=== PATIENT | male | born 1955 | race African-American/Black ===

== ENCOUNTER 2016-11-29 10:44 | Inpatient (IN) | payer MEDICARE ==
[~2016-11-29] VITALS: Ht 180.3 cm; Wt 86.6 kg
[2016-11-29] MEDS ORDERED: SODIUM CHLORIDE 0.9% 100 ML IV ONE (11:48)
[2016-11-29] MEDS ORDERED: CEFTRIAXONE 1 GM VIAL ONE (11:48)
[2016-11-29] MEDS ORDERED: SODIUM CHLORIDE 0.9% 1,000 ML ONE ×2 (11:49→12:23)
[2016-11-29] MEDS ORDERED: SALINE FLUSH 10 ML FLUSH PRN ×2 (12:30)
[2016-11-29] MEDS ORDERED: ACETAMINOPHEN 325 MG TAB PO PRN (12:30)
[2016-11-29] MEDS ORDERED: SODIUM CHLORIDE 0.9% 500 ML IV ONE (13:37)
[2016-11-29] MEDS: LACT RINGERS 1,000 ML IV SCH (15:26)
[2016-11-29 15:30] VITALS: BP_SYST 125; RESP 18; TEMP 100.3
[2016-11-29 15:31] VITALS: BP_SYST 130; Ht 180.3 cm; Wt 86.6 kg
[2016-11-29 16:17] VITALS: RESP 16
[2016-11-29 17:48] VITALS: TEMP 99.3
[2016-11-29] MEDS: SALINE FLUSH 10 ML FLUSH SCH (20:00)
[2016-11-29] MEDS ORDERED: SALINE FLUSH 10 ML FLUSH SCH (20:00)
[2016-11-29 20:43] VITALS: BP_SYST 126; RESP 16; TEMP 98.7
[2016-11-29 22:38] VITALS: BP_SYST 143; RESP 16; TEMP 98.2
[2016-11-30] MEDS: LACT RINGERS 1,000 ML IV SCH ×3 (01:37→20:33)
[2016-11-30 03:46] VITALS: BP_SYST 145; RESP 16; TEMP 98.6
[2016-11-30] MEDS: SODIUM CHLORIDE 0.9% FLUSH BAG 500 ML IV SCH (05:40)
[2016-11-30] MEDS ORDERED: SODIUM CHLORIDE 0.9% FLUSH BAG 500 ML IV SCH (06:00)
[2016-11-30 07:34] VITALS: BP_SYST 135; RESP 16; TEMP 98
[2016-11-30] MEDS: CEFTRIAXONE 2 GM in SODIUM CHLORIDE 0.9% 50 ML IV SCH (09:14)
[2016-11-30] MEDS: SALINE FLUSH 10 ML FLUSH SCH ×2 (09:15→20:00)
[2016-11-30] MEDS ORDERED: ALU/MAG/SIM 30 ML UDC PO PRN (09:20)
[2016-11-30] MEDS ORDERED: BISACODYL EC 5 MG TAB PO PRN (09:20)
[2016-11-30] MEDS ORDERED: FLEET ENEMA 132 ML BTL RECTAL PRN (09:20)
[2016-11-30] MEDS ORDERED: MAG HYDROX 30 ML UDC PO PRN (09:20)
[2016-11-30] MEDS ORDERED: BISACODYL 10 MG SUPP RECTAL PRN (09:20)
[2016-11-30] MEDS ORDERED: ONDANSETRON 4 MG VIAL IV PRN (09:20)
[2016-11-30] MEDS ORDERED: LOPERAMIDE 2 MG CAPSULE PO PRN (09:20)
[2016-11-30] MEDS ORDERED: GUAIFEN/DM 10 ML UDC PO PRN (09:20)
[2016-11-30] MEDS: FAMOTIDINE 20 MG TAB PO SCH ×2 (10:35→20:31)
[2016-11-30 11:11] VITALS: BP_SYST 147; RESP 16; TEMP 99
[2016-11-30] MEDS ORDERED: TAMSULOSIN 0.4 MG CAP PO ONE (13:05)
[2016-11-30 14:57] VITALS: BP_SYST 150; RESP 16; TEMP 98.7
[2016-11-30 20:23] VITALS: BP_SYST 158; RESP 16; TEMP 98.9
[2016-11-30] MEDS ORDERED: TAMSULOSIN 0.4 MG CAP PO SCH (21:00)
[2016-12-01] VITALS (7 sets, daily range): BP systolic 138–179; RESP 16; TEMP 97.7–99.6
[2016-12-01] MEDS: SODIUM CHLORIDE 0.9% FLUSH BAG 500 ML IV SCH (05:25)
[2016-12-01] MEDS: LACT RINGERS 1,000 ML IV SCH (05:45)
[2016-12-01] MEDS: SALINE FLUSH 10 ML FLUSH SCH ×2 (08:00→20:41)
[2016-12-01] MEDS ORDERED: KCL CR 20 MEQ TAB PO ONE (08:10)
[2016-12-01] MEDS: CEFTRIAXONE 2 GM in SODIUM CHLORIDE 0.9% 50 ML IV SCH (08:37)
[2016-12-01] MEDS: KCL CR 20 MEQ TAB PO SCH ×3 (08:41→20:40)
[2016-12-01] MEDS: FAMOTIDINE 20 MG TAB PO SCH ×2 (08:41→20:41)
[2016-12-01] MEDS: MAGNESIUM SULF 1 GM/100 ML 100 ML IV SCH ×2 (08:44→10:43)
[2016-12-01] MEDS: LISINOPRIL 20 MG TAB PO SCH (11:11)
[2016-12-01] MEDS: ATENOLOL 50 MG TAB PO SCH (11:11)
[2016-12-01] MEDS: TAMSULOSIN 0.4 MG CAP PO SCH (20:41)
[2016-12-02 03:00] VITALS: BP_SYST 167; RESP 16; TEMP 99.5
[2016-12-02 07:12] VITALS: BP_SYST 161; RESP 20; TEMP 98.8
[2016-12-02] MEDS: SODIUM CHLORIDE 0.9% FLUSH BAG 500 ML IV SCH (07:23)
[2016-12-02] MEDS: FAMOTIDINE 20 MG TAB PO SCH ×2 (08:25→20:27)
[2016-12-02] MEDS: ATENOLOL 50 MG TAB PO SCH (08:25)
[2016-12-02] MEDS: KCL CR 20 MEQ TAB PO SCH ×3 (08:25→20:27)
[2016-12-02] MEDS: LISINOPRIL 20 MG TAB PO SCH (08:25)
[2016-12-02] MEDS: CEFTRIAXONE 2 GM in SODIUM CHLORIDE 0.9% 50 ML IV SCH (08:27)
[2016-12-02] MEDS: SALINE FLUSH 10 ML FLUSH SCH ×2 (08:27→20:27)
[2016-12-02 11:04] VITALS: BP_SYST 154; RESP 20; TEMP 98.2
[2016-12-02 19:45] VITALS: BP_SYST 155; RESP 16; TEMP 98.7
[2016-12-02] MEDS: TAMSULOSIN 0.4 MG CAP PO SCH (20:27)
[2016-12-02 23:12] VITALS: BP_SYST 178; RESP 16; TEMP 98.5
[2016-12-03 03:22] VITALS: BP_SYST 163; RESP 16; TEMP 98.4
[2016-12-03] MEDS: SODIUM CHLORIDE 0.9% FLUSH BAG 500 ML IV SCH (05:21)
[2016-12-03 08:05] VITALS: BP_SYST 151; RESP 16; TEMP 98.1
[2016-12-03] MEDS: FAMOTIDINE 20 MG TAB PO SCH ×2 (09:26→20:08)
[2016-12-03] MEDS: ATENOLOL 50 MG TAB PO SCH (09:27)
[2016-12-03] MEDS: KCL CR 20 MEQ TAB PO SCH ×3 (09:27→20:08)
[2016-12-03] MEDS: LISINOPRIL 20 MG TAB PO SCH (09:27)
[2016-12-03] MEDS: SALINE FLUSH 10 ML FLUSH SCH ×2 (09:29→20:07)
[2016-12-03] MEDS: CEFTRIAXONE 2 GM in SODIUM CHLORIDE 0.9% 50 ML IV SCH (09:31)
[2016-12-03 11:36] VITALS: BP_SYST 169; RESP 18; TEMP 97.4
[2016-12-03 15:45] VITALS: BP_SYST 155; RESP 16; TEMP 98.5
[2016-12-03 19:00] VITALS: BP_SYST 165; RESP 18; TEMP 98.2
[2016-12-03] MEDS: TAMSULOSIN 0.4 MG CAP PO SCH (20:08)
[2016-12-03 23:36] VITALS: BP_SYST 156; RESP 18; TEMP 97.5
[2016-12-04 03:18] VITALS: BP_SYST 167; RESP 18; TEMP 97.9
[2016-12-04] MEDS: SODIUM CHLORIDE 0.9% FLUSH BAG 500 ML IV SCH (05:20)
[2016-12-04 07:58] VITALS: BP_SYST 167; RESP 18; TEMP 98
[2016-12-04] MEDS: KCL CR 20 MEQ TAB PO SCH (09:19)
[2016-12-04] MEDS: LISINOPRIL 20 MG TAB PO SCH (09:19)
[2016-12-04] MEDS: ATENOLOL 50 MG TAB PO SCH (09:20)
[2016-12-04] MEDS: SALINE FLUSH 10 ML FLUSH SCH (09:22)
[2016-12-04] MEDS: CEFTRIAXONE 2 GM in SODIUM CHLORIDE 0.9% 50 ML IV SCH (09:22)
[2016-12-04] MEDS ORDERED: MISSING DOSE XX ONE (10:40)
[2016-12-04 11:49] VITALS: BP_SYST 178; RESP 18; TEMP 97.6
[2016-12-04 12:09] VITALS: BP_SYST 167; RESP 18; TEMP 98
== END 2016-12-04 13:05 | disposition home or self-care (01) | DRG 872 ==
LOC: ER 10:44 → EMR 12:44 → 4THE 14:57
PROVIDERS: ADMIT Internal Medicine; ATTEND Internal Medicine
CPT/HCPCS: 71010; 71250; 74176; 80048; 80053; 81001; 83605; 83735; 84100; 85025; 87040; 87077; 87088; 87186; 94799; 96361; 96365; 99223; 99232; 99233; 99239

== ENCOUNTER 2016-12-21 07:34 | Emergency (ER) | payer MEDICARE, OTHER ==
[2016-12-21] MEDS ORDERED: SODIUM CHLORIDE 0.9% 1,000 ML ONE (07:58)
== END 2016-12-21 10:31 | disposition home or self-care (01) ==
LOC: ER 07:34
DX: N40.1 Benign prostatic hyperplasia with lower urinary tract symptoms (principal); R33.8 Other retention of urine; T83.9XXA Unspecified complication of genitourinary prosthetic device, implant and graft, initial encounter
CPT/HCPCS: 36415; 51702; 80053; 81001; 83690; 85025; 96360

== ENCOUNTER 2016-12-23 09:10 | Emergency (ER) | payer OTHER | END 2016-12-23 10:45 | disposition home or self-care (01) | LOC: ER 09:10 | DX: N40.1 Benign prostatic hyperplasia with lower urinary tract symptoms (principal); R33.8 Other retention of urine ==